=== PATIENT | male | born 1980 | race Asian ===

== ENCOUNTER 2021-06-07 14:50 | Emergency (ER) | payer OTHER ==
[~2021-06-07] VITALS: Ht 162.6 cm; Wt 72.6 kg
[2021-06-07 14:54] VITALS: BP 181/108
[2021-06-07] MEDS ORDERED: BACTRIM DS TAB1 EACH PO (15:01)
[2021-06-07] MEDS ORDERED: CEPHALEXIN500 MG PO (15:03)
== END 2021-06-07 15:16 | disposition home or self-care (01) ==
LOC: ER 14:50
DX: L03.116 Cellulitis of left lower limb (principal); S80.812A Abrasion, left lower leg, initial encounter; F17.210 Nicotine dependence, cigarettes, uncomplicated; W57.XXXA Bitten or stung by nonvenomous insect and other nonvenomous arthropods, initial encounter; Y93.89 Activity, other specified; Y92.89 Other specified places as the place of occurrence of the external cause; Y99.8 Other external cause status